=== PATIENT | male | born 1985 ===

== ENCOUNTER 2021-10-23 13:57 | Inpatient (IN) | payer MEDICARE, MEDICAID ==
[2021-10-23] MEDS ORDERED: MAGNESIUM HYDROXIDE 2,400 MG/10 ML CUP PO PRN (15:58)
[2021-10-23] MEDS ORDERED: HALOPERIDOL LACTATE 5 MG/ML 1 ML VIAL IM PRN (15:58)
[2021-10-23] MEDS ORDERED: ACETAMINOPHEN TAB 325 MG TAB PO PRN (15:58)
[2021-10-23] MEDS ORDERED: MAG HYDROX/AL HYDROX/SIMETH 30 ML CUP PO PRN (15:58)
[2021-10-23] MEDS ORDERED: LORazepam 2 MG/ML INJ IM PRN (16:02)
[2021-10-23 22:50] VITALS: RESP 18
[2021-10-23] MEDS: haloperidoL 5 MG TAB PO PRN (23:23)
[2021-10-23] MEDS: LORazepam 1 MG TAB PO PRN (23:23)
[2021-10-24] MEDS ORDERED: risperiDONE 2 MG TAB PO SCH (09:00)
[2021-10-24] MEDS: LORazepam 1 MG TAB PO PRN ×2 (09:04→23:23)
[2021-10-24] MEDS: NICOTINE 14MG/24HR PATCH TRANSDERM SCH (09:08)
[2021-10-24 14:42] LABS: Chol/HDL Ratio 2.53 Ratio; LDL Cholesterol,Calculated 61.2 mg/dL (0.0-131.0); VLDL Calculation 12.64 mg/dL (5.00-40.00)
--- NOTE | 2021-10-24 14:46 | P.HP ---
Psychiatric H&P - . H&P Date: 10/24/21 History & Physical: Allergies Allergy/AdvReac Type Severity Reaction Status Date / Time No Known Allergies Allergy Verified 10/23/21 15:57 Vital Signs Temp 97.9 F 10/24/21 06:47 Pulse 107 H 10/24/21 06:47 Resp 18 10/24/21 06:47 BP 120/68 10/24/21 06:47 Pulse Ox 99 10/24/21 06:47 FiO2 Intake & Output 10/23/21 10/24/21 10/24/21 18:59 06:59 18:59 Weight 72 kg Laboratory Last Values Estimated Ave Glu mg/dL 122 10/24/21 06:32 Hemoglobin A1c 5.9 % (0.0-6.0) 10/24/21 06:32 Triglycerides 63.20 mg/dL (0.00-149.00) 10/24/21 06:32 Cholesterol 122.00 mg/dL (0.00-200.00) 10/24/21 06:32 LDL Cholesterol, Calc 61.2 mg/dL (0.0-131.0) 10/24/21 06:32 VLDL Cholesterol, Calc 12.64 mg/dL (5.00-40.00) 10/24/21 06:32 HDL Cholesterol 48.20 mg/dL (40.00-60.00) 10/24/21 06:32 Cholesterol/HDL Ratio 2.53 Ratio 10/24/21 06:32 TSH 2.320 mIU/L (0.465-4.680) 10/24/21 06:32 10/24/21 14:46 IDENTIFYING DATA: Patient is a single, unemployed, 36-year-old -Belarusian male who presents to this hospital under petition and certification for mental health treatment from [facility]. HPI: Patient presented to the hospital on 10/23/2021, brought into the hospital from [facility] for mental health treatment. As per petition, the patient presented to the emergency department for increased auditory hallucination and unstable moods. He also appeared to be responding to internal stimuli and exhibiting bizarre behaviors. The patient was subsequently certified by Dr Oren lucia on 10/22/2021 stating "patient resents to the ED petition by family for increased auditory hallucinations and unstable moods. Patient appears to be responding to internal stimuli and has been without psychiatric medications. Patient requires further inpatient psychiatric admission for further stabilization." Upon evaluation the psychiatric unit, the patient does appear to respond to some internal stimuli and would be very tangential in conversation. He appears to be disorganized and at times. The patient however states that he has been previously prescribed Risperdal. He states that the Risperdal has been most beneficial for him and he is willing to take that medication. Although the patient does have a significant history of auditory and visual hallucinations, he is overtly denying any hallucinations at this time. He does display significant paranoia however is not reporting any overt delusions. The patient states that he has been homeless but has family all over the [place] area. Although he denies any overt psychotic symptoms staff have noted some bizarre behaviors. It was reported he was growling at the wall. Patient denies this when confronted. PAST PSYCHIATRIC HISTORY: Patient states that he has been diagnosed with schizophrenia. The patient recalls being prescribed Risperdal which has been beneficial for him. He states that lithium was not good for him. He is unable to recall any other medications. Reportedly, the patient has had numerous hospitalizations including stay at [facility]. The patient has been nonadherent with any outpatient psychiatric treatment. Patient denies any previous suicide attempts. PMH: Patient denies ALLERGIES: NO KNOWN DRUG ALLERGIES CHEMICAL DEPENDENCY HISTORY: The patient reports that he drinks heavily. He st ates that he drinks 6-8 beers on top of a fifth of liquor. He is unable to verbalize when his last beverage was. History is limited due to the patient's inability to maintain a linear conversation. FAMILY PSYCHIATRIC/SUBSTANCE USE HISTORY: Unable to assess SOCIAL HISTORY: Patient is homeless. He reports that he was never . He states that he has an 11th grade education. He previously worked for a [employer]. He is currently unemployed. MENTAL STATUS EXAM: General Appearance: Patient appears to be older than stated age is alert, directable, and attempts to cooperate. Patient appears to have poor hygiene and grooming. Behavior: Patient is seated but displays elevated psychomotor activity. Speech: Patient's speech is hyperverbal, nonlinear, tangential. Interruptible. Mood/Affect: Patient reports their mood is "I'm okay," affect is bizarre and slightly expansive. Suicidality/Homicidality: Patient denies any overt suicidal or homicidal ideations. Perceptions: Patient denies any visual hallucinations and denies any auditory hallucinations Though content/process: Patient appears to be disorganized and at times responding to internal stimuli. Memory and concentration: He is alert and oriented in all spheres. Concentration appears to be poor. Judgment and insight: Fair STRENGTHS/WEAKNESSES: Strength is that the patient appears to be in relatively good health. Weaknesses the patient has severe mental illness and history of nonadherence to treatment along with alcohol use disorder INTELLECT: average IMPRESSIONS: Schizophrenia Alcohol use disorder PLAN: -Patient is admitted under involuntary however wished to sign voluntarily into the MHU for stabilization of psychiatric symptoms and safety. Patient signed adult voluntary form and medication consent and is placed in patient's chart. -Medications : Patient wishes to restart Risperdal 2 mg by mouth twice a day for mood stabilization/psychosis -Ativan and Haldol PRN for agitation/aggression -Patient was counselled on substance abuse and desired to cut back on use -Patient was informed of the risks, benefits and side effects of the medication and patient verbally consented to taking the medications. Patient signed med consent form and was placed in chart. -Internal Medicine consult to perform medical evaluation and physical. -NRT - nicotine patch -SW on board for discharge planning. Encourage patient to participate in groups to work on coping skills.
[2021-10-24] MEDS: risperiDONE 2 MG TAB PO SCH (21:04)
[2021-10-24] MEDS: haloperidoL 5 MG TAB PO PRN (23:23)
--- NOTE | 2021-10-25 04:09 | P.PN ---
Progress Note - Text Progress Note Date: 10/25/21 Attempted to see the patient in the MHU. Patient asleep and refused to be seen or evaluated.
[2021-10-25 07:05] VITALS: BP 108/67; PULSE 72; TEMP 97.4
[2021-10-25] MEDS: risperiDONE 2 MG TAB PO SCH (09:02)
[2021-10-25] MEDS: NICOTINE 14MG/24HR PATCH TRANSDERM SCH (09:04)
--- NOTE | 2021-10-25 13:06 | P.DS ---
Providers Date of admission: 10/23/21 22:21 Expected date of discharge: 10/25/21 Attending physician: Alexandru Tong MD Consults: 10/23/21 15:58 Consult Physician Routine Consulting Provider: Arnold Carlos Consult Reason/Comments: medical management Do you want consulting provider notified?: Yes Primary care physician: Stated None - Discharge Diagnosis(es) (1) Schizophrenia Current Visit: Yes Status: Acute Priority: High (2) Alcohol use disorder Current Visit: Yes Status: Chronic Priority: Medium (3) Tobacco use disorder Current Visit: Yes Status: Chronic Priority: Medium Hospital Course: Admission HPI: Patient is a single, unemployed, 36-year-old -Haitian male who presents to this hospital under petition and certification for mental health treatment from [facility]. HPI: Patient presented to the hospital on 10/23/2021, brought into the hospital from [facility] for mental health treatment. As per petition, the patient presented to the emergency department for increased auditory hallucination and unstable moods. He also appeared to be responding to internal stimuli and exhibiting bizarre behaviors. The patient was subsequently certified by Dr Herring on 10/22/2021 stating "patient resents to the ED petition by family for increased auditory hallucinations and unstable moods. Patient appears to be responding to internal stimuli and has been without psychiatric medications. Patient requires further inpatient psychiatric admission for further stabilization." Upon evaluation the psychiatric unit, the patient does appear to respond to some internal stimuli and would be very tangential in conversation. He appears to be disorganized and at times. The patient however states that he has been previously prescribed Risperdal. He states that the Risperdal has been most beneficial for him and he is willing to take that medication. Although the patient does have a significant history of auditory and visual hallucinations, he is overtly denying any hallucinations at this time. He does display significant paranoia however is not reporting any overt delusions. The patient states that he has been homeless but has family all over the [place] area. Although he denies any overt psychotic symptoms staff have noted some bizarre behaviors. It was reported he was growling at the wall. Patient denies this when confronted. Patient states that he has been diagnosed with schizophrenia. The patient rec alls being prescribed Risperdal which has been beneficial for him. He states that lithium was not good for him. He is unable to recall any other medications. Reportedly, the patient has had numerous hospitalizations including stay at [facility]. The patient has been nonadherent with any outpatient psychiatric treatment. Patient denies any previous suicide attempts. Hospital course: Upon admission to the unit patient was initially presenting as expansive, bizarre, and impulsive. Patient was however directable and agreeable to commence treatment. Patient got along well with other patients on the unit and followed unit protocol. Patient was compliant with the medications and denied any side effects throughout hospital course. Patient was started on Risperdal for management of mood stabilization and psychosis. Patient spoke of his stressors and engaged in therapy both group and individual. Patient was also seen by medical team for history and physical exam. When restarted on his medications, the patient became much more linear and logical conversation. He also displayed a higher level thinking and the ability to be resourceful and plan ahead. The patient was given the opportunity sign himself voluntarily on the psychiatric unit instead of continuing with petition and certification process. The patient attended groups to the high-level participation and was calm, cooperative, and friendly with staff and peers. On the day of discharge, the patient is not reporting any suicidal or homicidal ideation, intention, and/or plan. He is not reporting any auditory or visual hallucinations. He denies any paranoia or other delusions. He expresses future orientation with the desire to live in the [facility] and to eventually settle down. 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 The patient has been adherent with his medications and is not reporting any significant side effects at this time. The patient does report significant history substance abuse however is pre-contemplative in quitting and does not wish to go to rehab. The patient was counseled at length on abstaining from all substances including alcohol and marijuana. The patient was urged to be adherent with his medications and to follow-up with outpatient appointments. Prior to discharge, family meeting was arranged by the child protective services social worker to ensure safety. The patient's mother expressed no concerns. Mental status exam: General Appearance: Patient appears to be stated age is alert, pleasant, and cooperative. Patient is in no acute distress and has fair hygiene and grooming Behavior: Patient is calmly seated without any agitated behavior. Speech: Patient's speech is fluent and nonpressured. Mood/Affect: Patient reports their mood is "going good", affect is congruent and euthymic to bright. Suicidality/Homicidality: Patient denies having any suicidal or homicidal ideation intent or plan. Perceptions: Patient denies any auditory or visual hallucinations. Though content/process: There is no evidence of any delusional thought content and thought process is linear and goal-directed. The patient is future oriented. Memory and concentration: AOX3, grossly intact for the purposes of this session. Can spell "WORLD" backwards correctly. Judgment and insight: Improved with guarded prognosis Vital Signs Temp 97.4 F L 10/25/21 07:04 Pulse 72 10/25/21 07:04 Resp 18 10/24/21 06:47 BP 108/67 10/25/21 07:04 Pulse Ox 100 10/25/21 07:04 FiO2 Laboratory Results Estimated Ave Glu mg/dL 122 10/24/21 06:32 Hemoglobin A1c 5.9 % (0.0-6.0) 10/24/21 06:32 Triglycerides 63.20 mg/dL (0.00-149.00) 10/24/21 06:32 Cholesterol 122.00 mg/dL (0.00-200.00) 10/24/21 06:32 LDL Cholesterol, Calc 61.2 mg/dL (0.0-131.0) 10/24/21 06:32 VLDL Cholesterol, Calc 12.64 mg/dL (5.00-40.00) 10/24/21 06:32 HDL Cholesterol 48.20 mg/dL (40.00-60.00) 10/24/21 06:32 Cholesterol/HDL Ratio 2.53 Ratio 10/24/21 06:32 TSH 2.320 mIU/L (0.465-4.680) 10/24/21 06:32 Allergies Allergy/AdvReac Type Severity Reaction Status Date / Time No Known Allergies Allergy Verified 10/23/21 15:57 Impression: Schizophrenia Alcohol use disorder Tobacco use disorder Plan: -Continue with discharge today as patient has improved and stabilized psychiatrically and is not currently an imminent threat to himself and/or others. Patient will remain at chronically elevated risk for harm to self and/or others due to his homelessness and alcohol abuse. -Continue medications: Risperdal 2 mg by mouth twice a day for mood stabilization/psychosis -Patient was counseled on the need for medication compliance and appropriate follow-up at mental health and also primary care for medical issues. Patient verbalized understanding and agreed. -Social work to arrange for and conduct family meeting to ensure safety upon discharge and answer any questions/concerns. Social work also to arrange for patients follow up appointments with [facility] for psychiatric care along with follow up with primary care provider. -Patient counseled on abstaining from recreational drugs and marijuana and alcohol. Was informed/educated on the adverse effects on their physical and mental health. Patient verbally agreed and understood. -Patient was instructed to return to the hospital or seek immediate medical care if their psychiatric or medical symptoms do worsen or reoccur. -Psychoeducation and supportive therapy provided to patient. Risks and benefits of pharmacological treatment versus the risks and benefits of nontreatment weight and discussed. Informed consent discussion held. Common side effects of psychotropics discussed such as, but not limited to headache, GI disturbance, sexual dysfunction, movement disorders, sedation, and orthostatic hypotension. Life threatening and blackbox warnings of prescribed medications also discussed. Potential risks of operating a vehicle or heavy machinery discussed with patient at length. Advised on importance of compliance and a reliable and responsible manner. Patient advised to review FDA consumer labeling of all medications prior to taking. Patient verbalized understanding of potential risks, and agrees with current treatment plan. Patient advised to medically contact physician/emergency personnel if any acute changes in condition occur. Plan - Discharge Summary New Discharge Prescriptions: New risperiDONE [RisperDAL] 2 mg PO BID 30 Days tab Discharge Medication List risperiDONE [RisperDAL] 2 mg PO BID 30 Days tab 10/25/21 [Rx] Follow up Appointment(s)/Referral(s): [facility] [Other] - 10/27/21 4:00 pm (10/27 @ 4:00 via Telehealth with [facility]) [facility] [NON-STAFF] - 1 Week Patient Instructions/Handouts: How to Stop Smoking (DC), Depression (DC) Activity/Diet/Wound Care/Special Instructions: Activity and diet as tolerated. Avoid the use of street drugs and alcohol. Take all medications as prescribed. When you are in need of refills on your medications please contact your medical provider and/or outpatient psychiatrist to have this done. Please go to scheduled outpatient appointment for aftercare treatment. If symptoms return or become worse, call the crisis line at and/or go to the nearest emergency room for evaluation Discharge Disposition: HOME SELF-CARE
== END 2021-10-25 14:02 | disposition home or self-care (01) | DRG 885 ==
LOC: 3MHU 22:21
PROVIDERS: ADMIT Psychiatry & Neurology Psychiatry; ATTEND Psychiatry & Neurology Psychiatry
DX: F20.9 Schizophrenia, unspecified (principal); Z56.0 Unemployment, unspecified; Z59.00 Homelessness unspecified; Z72.0 Tobacco use; Z79.899 Other long term (current) drug therapy
CPT/HCPCS: 80061; 83036; 84443

== ENCOUNTER 2021-10-25 22:45 | Emergency (ER) | payer MEDICARE, OTHER ==
[2021-10-25 22:49] VITALS: RESP 18; TEMP 98.3
[2021-10-26] MEDS ORDERED: IBUPROFEN 600 MG TAB PO STA (02:22)
--- NOTE | 2021-10-26 02:50 | ED ---
General Adult HPI - General Chief complaint: Extremity Injury, Upper Stated complaint: rt hand injury Time Seen by Provider: 10/26/21 02:16 Source: patient, RN notes reviewed Mode of arrival: ambulatory Limitations: no limitations - History of Present Illness Initial comments: 36-year-old male presents to the emergency department for evaluation of right hand pain and injury, onset 1 week prior to arrival. Patient states he punched a wall last week and waited for the swelling to go down. States he thinks his "hand is broke." Complains of discomfort at the base of the 5th digit with a small area of swelling. Did not take anything for pain prior to arrival. Denies any other injuries or concerns at this time. - Related Data Previous Rx's Medication Instructions Recorded risperiDONE [RisperDAL] 2 mg PO BID 30 Days tab 10/25/21 Allergies Allergy/AdvReac Type Severity Reaction Status Date / Time No Known Allergies Allergy Verified 10/25/21 22:49 Review of Systems ROS Statement: Those systems with pertinent positive or pertinent negative responses have been documented in the HPI. ROS Other: All systems not noted in ROS Statement are negative. Past Medical History Past Medical History: No Reported History History of Any Multi-Drug Resistant Organisms: None Reported Past Surgical History: No Surgical Hx Reported Past Psychological History: No Psychological Hx Reported Smoking Status: Current every day smoker Past Alcohol Use History: Daily Past Drug Use History: Marijuana General Exam Limitations: no limitations (Well-developed, well-nourished male in no acute distress. Initial temperature 98.3, pulse 87, respirations 18, blood pressure 109/72, pulse ox 96% on room air.) General appearance: alert, in no apparent distress Respiratory exam: Present: normal lung sounds bilaterally. Absent: respiratory distress, wheezes, rales, rhonchi, stridor Cardiovascular Exam: Present: regular rate, normal rhythm, normal heart sounds. Absent: systolic murmur, diastolic murmur, rubs, gallop, clicks GI/Abdominal exam: Present: soft, normal bowel sounds. Absent: distended, tenderness, guarding, rebound, rigid Right Elbow exam: Present: normal inspection, full ROM. Absent: tenderness, swelling Forearm Wrist exam: Present: normal inspection, full ROM. Absent: tenderness, swelling Hand Wrist exam: Present: full ROM, tenderness (Tenderness upon palpation of the fifth metacarpal and fifth digit, dorsal surface right hand), swelling (Mild Swelling at the fifth MCP joint) Neuro motor exam: Present: thumb opposition intact, fingers 2-5 abduction intact, other (Handgrip strong and equal bilaterally) Vascular: Present: normal capillary refill, radial pulse, ulnar pulse. Absent: vascular compromise, Pallo Neurological exam: Present: alert, oriented X3, CN II-XII intact, normal gait Psychiatric exam: Present: normal affect, normal mood Skin exam: Present: warm, dry, intact, normal color Course Vital Signs 10/25/21 10/26/21 22:46 03:29 Temperature 98.3 F Pulse Rate 87 57 L Respiratory 18 18 Rate Blood Pressure 109/72 178/81 O2 Sat by Pulse 96 Oximetry Medical Decision Making - Medical Decision Making 36-year-old male in no significant past medical history presents to emergency department for evaluation of right hand pain after punching a wall a week ago. Upon exam, the is mild swelling surrounding the fifth MCP joint and minimal tenderness along the fifth metacarpal on the dorsal surface of the right hand. Patient was given Motrin for discomfort. X-ray of was obtained and is unremarkable. Boubacar wrap was applied and patient is instructed to take Tylenol or Motrin if needed for pain. Encouraged to follow up with his PCP for a recheck. Return parameters discussed in detail. Patient verbalizes understanding and agrees with this plan. Attending: Phani. - Radiology Data Radiology results: report reviewed, image reviewed X-ray of the right hand was obtained. Report was reviewed in its entirety. Impression per Dr. 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 Distal fracture. No evidence of fracture on the little finger. Disposition Clinical Impression: Right hand pain Disposition: HOME SELF-CARE Condition: Stable Instructions (If sedation given, give patient instructions): Hand Sprain (ED) Additional Instructions: May take Tylenol or Motrin as needed for pain or discomfort. Boubacar wrap for compression. Keep extremity elevated while at rest. Follow-up with your PCP for recheck in 48 hours if needed. Return to the emergency department with any new, worsening, or concerning symptoms. Is patient prescribed a controlled substance at d/c from ED?: No Referrals: None,Stated [Primary Care Provider] - 1-2 days Time of Disposition: 03:42
--- NOTE | 2021-10-26 03:16 | XR ---
EXAMINATION TYPE: XR hand complete RT DATE OF EXAM: 10/26/2021 COMPARISON: NONE HISTORY: Fifth digit pain TECHNIQUE: 3 views FINDINGS: There is minor spurring at the IP joints. Metacarpals are intact. I see no fracture nor dis location. Carpal bones are intact. There are no erosions. 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 No fracture. No evidence of fracture of the little finger.
[2021-10-26 03:30] VITALS: BP 178/81; PULSE 57
== END 2021-10-26 04:00 | disposition home or self-care (01) ==
LOC: EC 22:45
DX: M79.641 Pain in right hand (principal); F17.200 Nicotine dependence, unspecified, uncomplicated
CPT/HCPCS: 99283

== ENCOUNTER 2021-10-26 23:12 | Emergency (ER) | payer MEDICARE, OTHER ==
[2021-10-26 23:50] VITALS: BP 108/66; PULSE 88; RESP 16; TEMP 97.5
[2021-10-27] MEDS ORDERED: KETOROLAC 15 MG/ML 1 ML VIAL IM STA (01:30)
--- NOTE | 2021-10-27 01:32 | ED ---
General Adult HPI - General Chief complaint: Extremity Injury, Upper Stated complaint: hand injury revisit Time Seen by Provider: 10/27/21 01:05 Source: patient Mode of arrival: ambulatory Limitations: no limitations - History of Present Illness Initial comments: Patient is a 36-year-old male presenting with chief complaint of right fifth finger pain. Patient states that a week ago he punched a wall, he was evaluated in this ER last night for hand pain. X-rays on no fracture. Patient states he is having continued pain. He is not using any Motrin or Tylenol at home for pain control. He denies any numbness, tingling, weakness, loss of range of motion. - Related Data Previous Rx's Medication Instructions Recorded risperiDONE [RisperDAL] 2 mg PO BID 30 Days tab 10/25/21 Allergies Allergy/AdvReac Type Severity Reaction Status Date / Time No Known Allergies Allergy Verified 10/26/21 23:50 Review of Systems ROS Statement: Those systems with pertinent positive or pertinent negative responses have been documented in the HPI. ROS Other: All systems not noted in ROS Statement are negative. Past Medical History Past Medical History: No Reported History History of Any Multi-Drug Resistant Organisms: None Reported Past Surgical History: No Surgical Hx Reported Past Psychological History: No Psychological Hx Reported Smoking Status: Current every day smoker Past Alcohol Use History: Daily Past Drug Use History: Marijuana General Exam Limitations: no limitations General appearance: alert, in no apparent distress Head exam: Present: atraumatic, normocephalic, normal inspection Eye exam: Present: normal appearance, EOMI. Absent: scleral icterus Neck exam: Present: normal inspection Extremities exam: Present: normal inspection, full ROM, normal capillary refill. Absent: tenderness, joint swelling Neurological exam: Present: alert, CN II-XII intact Psychiatric exam: Present: normal affect, normal mood Skin exam: Present: warm, dry, intact, normal color. Absent: rash Course Vital Signs 10/26/21 23:48 Temperature 97.5 F L Pulse Rate 88 Respiratory 16 Rate Blood Pressure 108/66 O2 Sat by Pulse 96 Oximetry Medical Decision Making - Medical Decision Making Patient is a 36-year-old male presenting with chief complaint of right 5th finger pain. This is from an injury a week ago where he punched a wall. He received x-rays and this ER last night confirming there is no fracture. Patient has not taken any supportive treatment at home. On examination there is no swelling, he has full range of motion with no tenderness. Neurovascularly intact. Denies any numbness or tingling. Patient is provided with a finger splint for support upon his request. Patient is given Toradol for pain control. Follow-up with PCP in one week. Report back to ER with any new or worsening symptoms. I discussed return parameters alarm symptoms. Answered all questions. Patient conveyed verbal understanding and agreed to the plan. My attending is Dr. Kelly. Disposition Clinical Impression: Finger pain Disposition: HOME SELF-CARE Condition: Good Instructions (If sedation given, give patient instructions): Finger Sprain (ED) Additional Instructions: Follow-up with PCP this week. Report back to ER with any new or worsening symptoms. Take Motrin and Tylenol as needed for pain control. Ice the finger for pain control. Is patient prescribed a controlled substance at d/c from ED?: No Referrals: None,Stated [Primary Care Provider] - 1-2 days Time of Disposition: 01:32
== END 2021-10-27 02:07 | disposition home or self-care (01) ==
LOC: EC 23:12
DX: M79.644 Pain in right finger(s) (principal); F17.200 Nicotine dependence, unspecified, uncomplicated; F12.90 Cannabis use, unspecified, uncomplicated; W22.01XA Walked into wall, initial encounter
CPT/HCPCS: 96372; 99283

== ENCOUNTER 2021-10-28 23:37 | Emergency (ER) | payer MEDICARE, OTHER ==
[2021-10-28 23:45] VITALS: BP 141/67; RESP 18; TEMP 98
[2021-10-29 00:39] VITALS: PULSE 112
--- NOTE | 2021-10-29 01:13 | ED ---
URI HPI - General Chief Complaint: Upper Respiratory Infection Stated Complaint: feeling sick Time Seen by Provider: 10/29/21 00:42 Source: patient, RN notes reviewed Mode of arrival: ambulatory Limitations: no limitations - History of Present Illness Initial Comments: Patient comes to the emergency back complaining of a productive cough for the past few days. Denies any fever. Denies any pain. No sore throat. No earache. No significant nasal discharge. No headache, no fever or chills, no changes in vision or hearing, no sore throat or difficulty with speech, no neck pain, no chest pain or shortness of breath, no abdominal pain, no nausea or vomiting, no changes in urination or bowel movements, no numbness or tingling, no extremity pain, no skin rashes or lesions. MD Complaint: cough - Related Data Previous Rx's Medication Instructions Recorded risperiDONE [RisperDAL] 2 mg PO BID 30 Days tab 10/25/21 Benzonatate [Tessalon Perles] 200 mg PO TID PRN #30 capsule 10/29/21 guaiFENesin [Mucinex] 1,200 mg PO BID #30 tab 10/29/21 Allergies Allergy/AdvReac Type Severity Reaction Status Date / Time No Known Allergies Allergy Verified 10/28/21 23:45 Review of Systems ROS Statement: Those systems with pertinent positive or pertinent negative responses have been documented in the HPI. ROS Other: All systems not noted in ROS Statement are negative. Past Medical History Past Medical History: No Reported History History of Any Multi-Drug Resistant Organisms: None Reported Past Surgical History: No Surgical Hx Reported Past Psychological History: No Psychological Hx Reported Smoking Status: Current every day smoker Past Alcohol Use History: Daily Past Drug Use History: Marijuana General Exam - General Exam Comments Initial Comments: Patient does not appear to be ill or toxic. Vital signs stable, patient afebrile. Limitations: no limitations General appearance: alert, in no apparent distress Head exam: Present: atraumatic, normocephalic, normal inspection Eye exam: Present: normal appearance, PERRL, EOMI. Absent: scleral icterus, conjunctival injection, periorbital swelling ENT exam: Present: normal exam, normal oropharynx, mucous membranes moist, TM's normal bilaterally. Absent: mucous membranes dry, normal external ear exam Neck exam: Present: normal inspection, full ROM. Absent: tenderness, meningismus, lymphadenopathy Respiratory exam: Present: normal lung sounds bilaterally. Absent: respiratory distress, wheezes, rales, rhonchi, stridor, chest wall tenderness, accessory mus lisset use, decreased breath sounds, prolonged expiratory Cardiovascular Exam: Present: regular rate, normal rhythm, normal heart sounds. Absent: systolic murmur, diastolic murmur, rubs, gallop, clicks GI/Abdominal exam: Present: soft, normal bowel sounds. Absent: distended, tenderness, guarding, rebound, rigid Extremities exam: Present: normal inspection, full ROM, normal capillary refill. Absent: tenderness, pedal edema, joint swelling, calf tenderness Back exam: Present: normal inspection Neurological exam: Present: alert, oriented X3, CN II-XII intact Psychiatric exam: Present: normal affect, normal mood Skin exam: Present: warm, dry, intact, normal color. Absent: rash Course Vital Signs 10/28/21 10/29/21 23:43 00:39 Temperature 98 F Pulse Rate 59 L 112 H Respiratory 18 18 Rate Blood Pressure 141/67 O2 Sat by Pulse 100 Oximetry Procedures - Smoking Cessation Time Spent Discussing Smoking Cessation w/Patient (Minutes): 5 Patient Acknowledges Need for Cessation: No Medical Decision Making - Medical Decision Making Patient symptomology most consistent with viral bronchitis. Patient is a cigarette smoker. I did financial health counselor him on cessation. - Lab Data Lab Results 10/29/21 10/29/21 Range/Units 01:01 01:01 Coronavirus (PCR) Not Detected (Not Detectd) Influenza Type A RNA Not Detected (Not Detectd) Influenza Type B (PCR) Not Detected (Not Detectd) - Radiology Data Radiology results: pending, image reviewed (No evidence of acute pathology as read by me. No pneumothorax. No infiltrate. No osseous lesion. No cardiomegaly. No effusion.) Disposition Clinical Impression: Acute viral bronchitis, Cigarette smoker Disposition: HOME SELF-CARE Condition: Good Instructions (If sedation given, give patient instructions): How to Stop Smoking (ED), Acute Bronchitis (ED) Additional Instructions: Follow-up with your regular physician as directed. Return to the ER immediately if any symptoms worsen, new symptoms arise, or any other problems develop. Prescriptions: guaiFENesin [Mucinex] 1,200 mg PO BID #30 tab Benzonatate [Tessalon Perles] 200 mg PO TID PRN #30 capsule PRN Reason: Cough Is patient prescribed a controlled substance at d/c from ED?: No Referrals: Nathan Cleaning [STAFF PHYSICIAN] - 11/03/21 Time of Disposition: 01:59
[2021-10-29] MEDS ORDERED: BENZONATATE 100 MG CAP PO STA (01:57)
--- NOTE | 2021-10-29 03:44 | XR ---
EXAM: XR Chest, 2 Views CLINICAL HISTORY: ITS.REASON XR Reason: Cough TECHNIQUE: Frontal and lateral views of the chest. COMPARISON: No relevant prior studies available. FINDINGS: Lungs: No consolidation or mass. Pleural space: No effusion. Heart: No cardiomegaly. Bones/joints: No acute findings. IMPRESSION: No acute cardiopulmonary process.
== END 2021-10-29 02:17 | disposition home or self-care (01) ==
LOC: EC 23:37
DX: J20.9 Acute bronchitis, unspecified (principal); F17.210 Nicotine dependence, cigarettes, uncomplicated; Z20.822 Contact with and (suspected) exposure to COVID-19
CPT/HCPCS: 71046; 87502; 87635; 99283

== ENCOUNTER 2021-11-15 23:22 | Emergency (ER) | payer MEDICARE, OTHER ==
[2021-11-16 01:46] VITALS: BP 123/87; PULSE 63; RESP 19; TEMP 98.6
[2021-11-16] MEDS ORDERED: IBUPROFEN 600 MG STARTER PACK 4 TAB BTL PO STA (02:53)
[2021-11-16] MEDS ORDERED: IBUPROFEN 600 MG TAB PO STA (02:53)
[2021-11-16] MEDS ORDERED: dexAMETHasone 2 MG TAB PO STA (02:53)
--- NOTE | 2021-11-16 02:54 | ED ---
Extremity Problem HPI - General Chief complaint: Extremity Problem,Nontraumatic Stated complaint: Bilat hand swelling Time Seen by Provider: 11/16/21 02:10 Source: patient, RN notes reviewed, old records reviewed Mode of arrival: ambulatory Limitations: no limitations - History of Present Illness Initial comments: This is a 36-year-old male DF for evaluation of hand pain and swelling. No significant rash noted here exam. No trauma. He states he does have history of hand swelling. Patient does occasionally get rashes and skin peeling. No other complaints no medical history takes no medications. MD Complaint: extremity pain, extremity swelling -: days(s) Location: left, right, upper extremity (Hands) History of Same: Yes Radiation: none Severity scale (1-10): 4 Quality: aching Consistency: intermittent Improves with: nothing Worsens with: nothing Associated Symptoms: denies other symptoms - Related Data Previous Rx's Medication Instructions Recorded risperiDONE [RisperDAL] 2 mg PO BID 30 Days tab 10/25/21 Benzonatate [Tessalon Perles] 200 mg PO TID PRN #30 capsule 10/29/21 guaiFENesin [Mucinex] 1,200 mg PO BID #30 tab 10/29/21 Allergies Allergy/AdvReac Type Severity Reaction Status Date / Time No Known Allergies Allergy Verified 11/16/21 01:46 Review of Systems ROS Statement: Those systems with pertinent positive or pertinent negative responses have been documented in the HPI. ROS Other: All systems not noted in ROS Statement are negative. Past Medical History Past Medical History: No Reported History History of Any Multi-Drug Resistant Organisms: None Reported Past Surgical History: No Surgical Hx Reported Past Psychological History: No Psychological Hx Reported Smoking Status: Current every day smoker Past Alcohol Use History: Daily Past Drug Use History: Marijuana General Exam - General Exam Comments Initial Comments: Patient likely has eczema bilateral hands General appearance: alert, in no apparent distress Head exam: Present: atraumatic, normocephalic, normal inspection Eye exam: Present: normal appearance, PERRL, EOMI. Absent: scleral icterus, conjunctival injection, periorbital swelling ENT exam: Present: normal exam, mucous membranes moist Neck exam: Present: normal inspection. Absent: tenderness, meningismus, lymphadenopathy Respiratory exam: Present: normal lung sounds bilaterally. Absent: respiratory distress, wheezes, rales, rhonchi, stridor Cardiovascular Exam: Present: regular rate, normal rhythm, normal heart sounds. Absent: systolic murmur, diastolic murmur, rubs, gallop, clicks GI/Abdominal exam: Present: soft, normal bowel sounds. Absent: distended, tenderness, guarding, rebound, rigid Extremities exam: Present: normal inspection, full ROM, normal capillary refill. Absent: tenderness, pedal edema, joint swelling, calf tenderness Back exam: Present: normal inspection Neurological exam: Present: alert, oriented X3, CN II-XII intact Psychiatric exam: Present: normal affect, normal mood Skin exam: Present: warm, dry, intact, normal color. Absent: rash Course Vital Signs 11/16/21 01:43 Temperature 98.6 F Pulse Rate 63 Respiratory 19 Rate Blood Pressure 123/87 O2 Sat by Pulse 100 Oximetry - Reevaluation(s) Reevaluation #1: 11/16/21 03:18 Medical records reviewed Reevaluation #2: 11/16/21 03:18 Patient has no real change of symptoms here in the ER Reevaluation #3: 11/16/21 03:18 Patient informed of results and questions are answered Medical Decision Making - Medical Decision Making 36 male presents today for swollen hands. Patient likely does have underlying eczema. Some inflammation for both hands. Patient encouraged motion hands taking anti-inflammatories and can be discharged home Disposition Clinical Impression: Eczema of both hands, Hand edema Disposition: HOME SELF-CARE Condition: Good Instructions (If sedation given, give patient instructions): Edema (ED) Is patient prescribed a controlled substance at d/c from ED?: No Referrals: None,Stated [Primary Care Provider] - 1-2 days Time of Disposition: 03:00
== END 2021-11-16 04:00 | disposition home or self-care (01) ==
LOC: EC 23:22
DX: L30.9 Dermatitis, unspecified (principal); R60.9 Edema, unspecified; F17.200 Nicotine dependence, unspecified, uncomplicated
CPT/HCPCS: 99283

== ENCOUNTER 2021-11-25 18:21 | Inpatient (IN) | payer MEDICARE, MEDICAID ==
[2021-11-25] MEDS ORDERED: MAG HYDROX/AL HYDROX/SIMETH 30 ML CUP PO PRN (18:29)
[2021-11-25] MEDS ORDERED: HALOPERIDOL LACTATE 5 MG/ML 1 ML VIAL IM PRN (18:29)
[2021-11-25] MEDS ORDERED: MAGNESIUM HYDROXIDE 2,400 MG/10 ML CUP PO PRN (18:29)
[2021-11-25] MEDS ORDERED: LORazepam 1 MG TAB PO PRN (18:29)
[2021-11-25] MEDS ORDERED: LORazepam 1 MG/0.5 ML VIAL IM PRN (18:32)
[2021-11-25] MEDS ORDERED: haloperidoL 5 MG TAB PO PRN (18:33)
[2021-11-26] MEDS: CLINDAMYCIN 150 MG CAP PO SCH ×4 (02:06→21:06)
[2021-11-26] MEDS: NICOTINE 14MG/24HR PATCH TRANSDERM SCH (08:38)
[2021-11-26] MEDS ORDERED: risperiDONE 2 MG TAB PO SCH (09:00)
--- NOTE | 2021-11-26 11:55 | P.HPMEDMHU ---
History of Present Illness H&P Date: 11/26/21 History of Presenting Illness: Patient is a 36-year-old male with no known reported past medical history. He is currently admitted to inpatient mental health unit under psychiatric team and we have been consulted for medical management throughout his hospitalization. Patient seen and fully evaluated at mental health unit. Patient ambulatory with a steady gait and cooperative throughout assessment. Patient is alert and oriented to person, place, time, and situation. He reports having auditory hallucinations. Patient reports hearing voices and states these voices are "rude and constantly interrupt" him. Patient reports he is unable to sleep, eat, or functions secondary to constantly hearing these voices. Patient denies having any visual or tactile hallucinations and denies having any suicidal or homicidal ideations. Patient does report to smoking 2 to 2-1/2 packs of cigarettes daily, daily alcohol use drinking 3-5 beers along with 1 pint of hard liquor each and every day, and daily marijuana use. Patient denies any other drug use including prescription pills, cocaine, meth, or heroin. Patient denies having any reported medical history and currently denies having any headache, lightheadedness, dizziness, chest pain, palpitations, shortness of breath, or experiencing any numbness/tingling/weakness in his extremities. Patient reports pain and swelling to left hand. He reports this began Sunday night but has shown significant improvement since initial presentation. Upon review of chart patient underwent two-view x-ray to [facility] showing subacute/chronic appearing fracture of the third metacarpal with mild diffuse soft tissue swelling. Review of systems: Pertinent positives and negatives as discussed in HPI, a complete review of systems was performed and all other systems are negative. Physical exam: Vital signs reviewed and stable. General: Nontoxic, no distress and appears stated age. Derm: Skin warm and dry, normal coloration for ethnicity. Head: Atraumatic, normocephalic and symmetric. Eyes: EOMs intact, no lid lag, and anicteric sclera Mouth: no lip lesions, mucus membranes moist Cardiovascular: regular rate and rhythm with normal S1S2, no murmur, positive posterior tibial pulses bilaterally, and cap refill < 2 seconds. Lungs: Respirations even, regular, and unlabored on room air. Lungs CTA bilaterally, no rhonchi, no rales, no wheezing, and no accessory muscle usage. Abdominal: soft, nontender to palpation, no guarding, no appreciable organomegaly Ext: ROM intact. No gross muscle atrophy, no edema, no contractures Neuro: Speech clear, face symmetrical and CN II-XII grossly intact with no noted focal neuro deficits Psych: Alert and oriented to person, place, time, and situation. Appropriate and pleasant affect. Assessment and Plan of Care: Left hand pain and swelling Chronic fracture of the third metacarpal -patient underwent two-view x-ray to [facility] showing subacute/chronic appearing fracture of the third metacarpal with mild diffuse soft tissue swelling. -Recommend ice as needed, would recommend compression with Boubacar wrap however patient unable to have Boubacar wrap/dressing on mental health unit. -When necessary pain medication with Motrin and/or Tylenol. -Recommend outpatient follow-up with orthopnea specialist, Dr. Jauregui upon discharge from inpatient mental health unit. Auditory hallucinations -Management per primary admitting psychiatric team. -Provide safe and supportive care. Alcohol abuse -Patient reports last alcoholic drink Sunday prior to arrival at [facility]. -Recommend alcohol cessation and outpatient resources to be provided upon discharge including inpatient drug and alcohol rehabilitation programs, AA support groups, and counseling. Nicotine dependence -Recommend smoking cessation. -Nicotine patch Cannabinoid abuse disorder -Recommend cessation. Thank you for allowing us to participate in the care of this pleasant patient. Do not hesitate to contact us with questions. Someone can be reached from the [facility] hospitalist group all hours of the day at [phone] or via [employer]. Past Medical History Past Medical History: No Reported History History of Any Multi-Drug Resistant Organisms: None Reported Past Surgical History: No Surgical Hx Reported Past Psychological History: No Psychological Hx Reported Smoking Status: Current every day smoker Past Alcohol Use History: Daily Past Drug Use History: Marijuana Medications and Allergies Home Medications Medication Instructions Recorded Confirmed Type risperiDONE [RisperDAL] 2 mg PO BID 30 Days tab 10/25/21 Rx Benzonatate [Tessalon Perles] 200 mg PO TID PRN #30 capsule 10/29/21 Rx guaiFENesin [Mucinex] 1,200 mg PO BID #30 tab 10/29/21 Rx Allergies Allergy/AdvReac Type Severity Reaction Status Date / Time No Known Allergies Allergy Verified 11/26/21 03:00 Physical Exam Vitals: Vital Signs Temp Pulse Resp BP Pulse Ox 07/16/22 03:06 97.5 F L 79 16 112/59 98 Intake and Output 11/25/21 11/26/21 11/26/21 22:59 06:59 14:59 Other: Weight 75 kg 63.6 kg Cranial Nerve Examination - Cranial Nerves Cranial Nerve II- Optic: Intact Cranial Nerve III- Oculomotor: Intact Cranial Nerve IV- Trochlear: Intact Cranial Nerve V- Trigeminal: Intact Cranial Nerve - Abducens: Intact Cranial Nerve VII- Facial: Intact Cranial Nerve VIII- Auditory: Intact Cranial Nerve IX- Glossopharyngeal: Intact Cranial Nerve X- Vagus: Intact Cranial Nerve XI- Accessory: Intact Cranial Nerve XII- Hypoglossal: Intact Thrombosis Risk Factor Assmnt - Choose All That Apply Any of the Below Risk Factors Present?: No Other Risk Factors: No Other congenital or acquired thrombophilia - If yes, enter type in comment: No Thrombosis Risk Factor Assessment Level: Very Low Risk
--- NOTE | 2021-11-26 20:27 | P.HP ---
Psychiatric H&P - . H&P Date: 11/26/21 History & Physical: IDENTIFYING DATA: Patient is a 36 year old male with schizophrenia who presents with auditory hallucinations. HPI: Patient presented to the hospital as a transfer from [facility] due to psychosis. This is patient's second psychiatric hospitalization to [facility] in the past 1-2 months; last hospitalization for psychosis was from 10/23/21 to 10/25/21. Per mental health petition and cert, he was having "auditory hallucinations, commanding him to do things. Pt has poor insight and judgment." On assessment, patient is alert and oriented to person, place, time and situation. His thought process is disorganized with loose associations. He appears to be attending to internal stimuli. He endorses auditory hallucinations of voices that he sometimes can't make out what they're saying. Patient denies any suicidal or homicidal ideations, intent or plan. At this time, he denies visual hallucinations. Patient denies any flight of ideas, racing thoughts, and increased in goal directed behavior. He is paranoid and believes the police are out to get him. Patient admits to using marijuana whenever he can get it. Smokes tobacco - about 2.5 ppd. He drinks about 2 beers in one day currently, but has a history of heavy alcohol use. His last drink of alcohol was Sunday morning. PAST PSYCHIATRIC HISTORY: Patient states that he is diagnosed with schizophrenia but he missed his last appointment with his psychiatrist. Patient reports he takes Risperdal because "it got tooken from me". Previous psychiatric hospitalizations: [facility] in October 2021 Psychiatric outpatient follow-up: [facility] Psychiatry Patient denies any history of suicide attempts in the past. PMH: Left hand pain and swelling Chronic fracture of the third metacarpal ALLERGIES: as per EMR CHEMICAL DEPENDENCY HISTORY: Smokes tobacco - about 2.5 ppd Smokes marijuana whenever he can get it. He drinks about 2 beers in one day currently, but has a history of heavy alcohol use. His last drink of alcohol was Sunday morning. FAMILY PSYCHIATRIC/SUBSTANCE USE HISTORY: Unable to assess due to the severity of symptoms. SOCIAL HISTORY: Patient is homeless. He reports that he was never . He states that he has an 11th grade education. He previously worked for a [employer]. He is currently unemployed. MENTAL STATUS EXAM: General Appearance: Patient appears to be older than stated age is alert, directable, and attempts to cooperate. Patient appears to have poor hygiene and grooming. Behavior: Patient is seated but displays elevated psychomotor activity. Speech: Patient's speech is hyperverbal, nonlinear, tangential. Interruptible. Mood/Affect: Patient reports their mood is "I'm okay," affect is bizarre and slightly expansive. Suicidality/Homicidality: Patient denies any overt suicidal or homicidal ideations. Perceptions: Patient denies any visual hallucinations and denies any auditory hallucinations Though content/process: Patient appears to be disorganized and at times responding to internal stimuli. Memory and concentration: He is alert and oriented in all spheres. Concentration appears to be poor. Judgment and insight: Fair STRENGTHS/WEAKNESSES: Strength is that the patient appears to be in relatively good health. Weaknesses the patient has severe mental illness and history of nonadherence to treatment along with alcohol use disorder INTELLECT: average IMPRESSIONS: Schizophrenia Alcohol use disorder Cannabis use disorder Tobacco use disorder PLAN: -Patient is admitted under involuntary status to [facility] for stabilization of psychiatric symptoms and safety. A second certification was completed and along with petition will be filed for court. -Medications: Will restart patient on Risperdal and increase dose to 2 mg BID for psychosis and mood. -Patient was counselled on substance abuse and desired to cut back on use -Patient was informed of the risks, benefits and side effects of the medication and patient verbally consented to taking the medications. Patient signed med consent form and was placed in chart. -Internal Medicine consult to perform medical evaluation and physical. -NRT - nicotine patch - on board for discharge planning. Encourage patient to participate in groups to work on coping skills. Allergies Allergy/AdvReac Type Severity Reaction Status Date / Time No Known Allergies Allergy Verified 11/26/21 03:00 Vital Signs Temp 97.5 F L 11/26/21 03:06 Pulse 79 11/26/21 03:06 Resp 16 11/26/21 03:06 BP 112/59 11/26/21 03:06 Pulse Ox 98 11/26/21 03:06 FiO2 Intake & Output 11/26/21 11/26/21 11/27/21 06:59 18:59 06:59 Weight 63.6 kg Laboratory Last Values Estimated Ave Glu mg/dL 112 11/26/21 10:08 Hemoglobin A1c 5.5 % (0.0-6.0) 11/26/21 10:08 TSH 1.650 mIU/L (0.465-4.680) 11/26/21 10:08 11/26/21 19:55
[2021-11-26] MEDS: risperiDONE 2 MG TAB PO SCH (21:06)
[2021-11-26] MEDS: ACETAMINOPHEN TAB 325 MG TAB PO PRN (21:07)
[2021-11-27] MEDS: ACETAMINOPHEN TAB 325 MG TAB PO PRN ×2 (04:58→20:08)
[2021-11-27] MEDS: CLINDAMYCIN 150 MG CAP PO SCH ×3 (08:56→20:08)
[2021-11-27] MEDS: NICOTINE 14MG/24HR PATCH TRANSDERM SCH (08:56)
[2021-11-27] MEDS: risperiDONE 2 MG TAB PO SCH (08:56)
[2021-11-27 09:28] LABS: LDL Cholesterol,Calculated 52.8 mg/dL (0.0-131.0)
--- NOTE | 2021-11-27 20:04 | P.PN ---
Progress Note - Text Progress Note Date: 11/27/21 Interval History: Patient was seen wandering the hallways and was directable and agreeable to speak with race and sports book writer in the office. His thought process is improving mildly; he initially presents with linear and cohorent thoughts, but then quickly derails into tangents and begins to ramble about his hand pain and appear to respond to internal stimuli. He reports the pain in his hand improved after Tylenol this morning, but reports he is in pain again now. He was instructed to go to the nurse's station to get a dose of Tylenol for pain; he did not appear to be able to make this decision on his own and needed to be directed to the nurse's station. At this time patient denies any suicidal or homical ideations, intent or plan. Patient denies any auditory, visual hallucinations and denies any paranoia or delusions, but appears to be responding to internal stimuli. Patient denies any side effects from the medications and has been compliant with meds. Mental Status Exam: General Appearance: Patient appears to be stated age, with fair hygiene and grooming. Behavior: Patient is seated but displays elevated psychomotor activity. Speech: Patient's speech is hyperverbal, tangential. Mood/Affect: Patient reports their mood is "I'm okay," affect is odd. Suicidality/Homicidality: Patient denies any overt suicidal or homicidal ideations. Perceptions: Patient denies any visual hallucinations and denies any auditory hallucinations Though content/process: Patient appears to be disorganized and at times responding to internal stimuli. Memory and concentration: He is alert and oriented in all spheres. Concentration appears to be poor. Judgment and insight: Fair Assessment Schizophrenia Alcohol use disorder Cannabis use disorder Tobacco use disorder Plan: -Patient is admitted under involuntary status to [facility] for stabilization of psychiatric symptoms and safety. A second certification was completed and along with petition will be filed for court. -Medications: Increase Risperdal to 3 mg BID for psychosis and mood. -When necessary Ativan and Haldol for agitation/aggression. -NRT - nicotine patch -SW on board for discharge planning. Encouraged the patient to participate in milieu.
[2021-11-27] MEDS: risperiDONE 1 MG TAB PO SCH (20:07)
[2021-11-28] MEDS: ACETAMINOPHEN TAB 325 MG TAB PO PRN ×2 (05:26→16:58)
[2021-11-28] MEDS: NICOTINE 14MG/24HR PATCH TRANSDERM SCH (09:28)
[2021-11-28] MEDS: CLINDAMYCIN 150 MG CAP PO SCH ×3 (09:28→21:00)
[2021-11-28] MEDS: risperiDONE 1 MG TAB PO SCH ×2 (09:28→21:00)
--- NOTE | 2021-11-28 12:11 | P.PN ---
Progress Note - Text Progress Note Date: 11/28/21 Interval History: Patient was seen wandering the hallways and was directable and agreeable to david lopez with field underwriter in the office. Patient claims that he has been going to groups. Patient was bizarre at times, poor eye contact. He was illogical and had loose associations. He spoke about it being noncompliant with his medications when he was discharged previously. He was bizarre and difficult to redirect during conversation. He was exhibiting disorganized speech. Not responding to internal stimuli today. Poor judgment and understanding of his illness. He claims that he is taking the Risperdal at this time. He claims that he does not want to take the long-acting injection. He states that he is sleeping fairly at nighttime. fair Appetite. At this time patient denies any suicidal or homical ideations, intent or plan. Patient denies any auditory, visual hallucinations and denies any paranoia or delusions, but appears to be responding to internal stimuli. Patient denies any side effects from the medications and has been compliant with meds. Mental Status Exam: General Appearance: Patient appears to be stated age, with poor hygiene and grooming. Behavior: Patient is seated but displays elevated psychomotor activity Speech: Patient's speech is hyperverbal, tangential. Mood/Affect: Patient reports their mood is "ok" affect is odd. Suicidality/Homicidality: Patient denies any overt suicidal or homicidal ideations Perceptions: Patient denies any visual hallucinations and denies any auditory hallucinations Though content/process: Patient appears to be disorganized, rambling, illogical. Memory and concentration: He is alert and oriented in all spheres. Concentration appears to be poor Judgment and insight: poor Assessment: Schizophrenia Alcohol use disorder Cannabis use disorder Tobacco use disorder Plan: -Patient is admitted under involuntary status to [facility] for stabilization of psychiatric symptoms and safety. A second certification was completed and along with petition will be filed for court today. -Medications: Risperdal 3 mg BID for psychosis and mood. Will need to transition patient onto GUTIERREZ due to non compliance with meds. -When necessary Ativan and Haldol for agitation/aggression. -NRT - nicotine patch -SW on board for discharge planning. Encouraged the patient to participate in milieu. Will file second cert today and await deferral and court hearing date.
[2021-11-29] MEDS: ACETAMINOPHEN TAB 325 MG TAB PO PRN ×2 (05:45→16:06)
[2021-11-29] MEDS: CLINDAMYCIN 150 MG CAP PO SCH ×2 (09:16→16:07)
[2021-11-29] MEDS: risperiDONE 1 MG TAB PO SCH ×2 (09:16→21:12)
[2021-11-29] MEDS: NICOTINE 14MG/24HR PATCH TRANSDERM SCH (09:17)
--- NOTE | 2021-11-29 09:50 | P.PN ---
Progress Note - Text Progress Note Date: 11/29/21 Interval History: Patient was seen wandering the hallways coming out of the group this morning and was directable and agreeable to speak with screenplay writer in the office. He spoke about missing some groups earlier but has been trying to attent. He spoke vaguely about what he is learning. He states that he feels a bit better compared to yeterday with regards to his mood. He is denying any anxiety today. He claims that his appetite is good and claims that he got 6 hrs of sleep last night. speech is more ogranized today. Continues to have poor judgment and understanding of his illness. At this time patient denies any suicidal or homical ideations, intent or plan. Patient denies any auditory, visual hallucinations and denies any paranoia or delusions. Patient denies any side effects from the medications and has been compliant with meds. Mental Status Exam: General Appearance: Patient appears to be stated age, with poor hygiene and grooming. poor eye contact. Behavior: Patient is seated but displays elevated psychomotor activity Speech: Patient's speech is hyperverbal, tangential, improving. Mood/Affect: Patient reports their mood is "alright" affect is congruent. Suicidality/Homicidality: Patient denies any overt suicidal or homicidal ideations Perceptions: Patient denies any visual hallucinations and denies any auditory hallucinations Though content/process: Patient appears to be rambling, illogical, more goal oriented today. Memory and concentration: He is alert and oriented in all spheres. Concentration is improving mildly Judgment and insight: poor, improving mildly Assessment: Schizophrenia Alcohol use disorder Cannabis use disorder Tobacco use disorder Plan: -Patient is admitted under involuntary status to MHU for stabilization of psychiatric symptoms and safety. -Medications: Risperdal 3 mg BID for psychosis and mood. Will need to transition patient onto GUTIERREZ due to non compliance with meds however at this time patient is refusing. -When necessary Ativan and Haldol for agitation/aggression. -NRT - nicotine patch -SW on board for discharge planning. Encouraged the patient to participate in milieu. waiting on deferral and court date.
[2021-11-29] MEDS: IBUPROFEN 600 MG TAB PO PRN (22:30)
[2021-11-30] MEDS: NICOTINE 14MG/24HR PATCH TRANSDERM SCH (08:37)
[2021-11-30] MEDS: risperiDONE 1 MG TAB PO SCH ×2 (08:37→21:37)
[2021-11-30] MEDS: IBUPROFEN 600 MG TAB PO PRN ×2 (08:40→21:41)
--- NOTE | 2021-11-30 11:34 | P.PN ---
Progress Note - Text Progress Note Date: 11/30/21 Interval History: Patient was seen wandering the hallways this morning and was directable and ag reeable to speak with typewriter ribbon winder in the office. He appears to be more directable today and more appropriately during conversation. He has several questions about his medications. He claims that he will be meeting his subassembly supervisor later on today and plans on doing the deferral. He states that his mood and anxiety began gradually improving. He claims that he does need the medications and we spoke about the long-acting injection today the positives and the drawbacks and patient was agreeable to it today. We spoke also about discharge planning. He states that he is trying to go to most of the groups and participate as best as he can. He was not responding to internal stimuli. He states that he slept fairly last night about 5 or 6 hours. Speech is more ogranized today. At this time patient denies any suicidal or homical ideations, intent or plan. Patient denies any auditory, visual hallucinations and denies any paranoia or delusions. Patient denies any side effects from the medications and has been compliant with meds. Mental Status Exam: General Appearance: Patient appears to be stated age, with improving hygiene and grooming. poor eye contact. Behavior: Patient is seated but displays elevated psychomotor activity Speech: Patient's speech is hyperverbal, tangential, improving. Mood/Affect: Patient reports their mood is "ok" affect is congruent. Suicidality/Homicidality: Patient denies any overt suicidal or homicidal ideations Perceptions: Patient denies any visual hallucinations and denies any auditory hallucinations Though content/process: Patient appears to be more goal oriented today. Memory and concentration: He is alert and oriented in all spheres. Concentration is improving mildly Judgment and insight: poor, improving mildly Assessment: Schizophrenia Alcohol use disorder Cannabis use disorder Tobacco use disorder Plan: -Patient is admitted under involuntary status to MHU for stabilization of psychiatric symptoms and safety. -Medications: Risperdal 3 mg BID for psychosis and mood. Spoke with patient today about transitioning onto Invega Sustenna, patient is agreeable to receive this today. Will order Invega Sustenna loading dose 234 mg IM today. Next dose of 156 mg IM will be due on 12/07 and then monthly maintenance dose will be due on 12/28. -When necessary Ativan and Haldol for agitation/aggression. -NRT - nicotine patch -SW on board for discharge planning. Encouraged the patient to participate in milieu. waiting on deferral and court date.
[2021-11-30] MEDS: ACETAMINOPHEN TAB 325 MG TAB PO PRN (15:50)
[2021-11-30] MEDS ORDERED: PALIPERIDONE IM 234 MG/1.5 ML SYG IM ONE (16:00)
[2021-12-01] MEDS: ACETAMINOPHEN TAB 325 MG TAB PO PRN (05:01)
[2021-12-01] MEDS: risperiDONE 1 MG TAB PO SCH (08:52)
[2021-12-01] MEDS: NICOTINE 14MG/24HR PATCH TRANSDERM SCH (08:53)
--- NOTE | 2021-12-01 10:05 | P.PN ---
Progress Note - Text Progress Note Date: 12/01/21 Interval History: Patient was seen this morning attending groups and was directable and agreeable to speak with radio news writer in the office. He appears to be more directable today and more appropriately during conversation however continues to ramble at time. He is focused on medications and also on discharge. He states that he has to go to the [facility] station to collect his belongings. He has several questions about his medications. He states that he is going to groups. He states that his mood and anxiety began gradually improving. He states that he slept well last night. He received the long acting injection yesterday and toelrated it well. At this time patient denies any suicidal or homical ideations, intent or plan. Patient denies any auditory, visual hallucinations. Patient denies any side effects from the medications and has been compliant with meds. Mental Status Exam: General Appearance: Patient appears to be stated age, with improving hygiene and grooming. improving eye contact. Behavior: Patient is seated but displays elevated psychomotor activity Speech: Patient's speech is tangential, improving. Mood/Affect: Patient reports their mood is "fine" affect is congruent. Suicidality/Homicidality: Patient denies any overt suicidal or homicidal ideations Perceptions: Patient denies any visual hallucinations and denies any auditory hallucinations Though content/process: Patient appears to be more goal oriented today. rambles at times Memory and concentration: He is alert and oriented in all spheres. Concentration is improving mildly Judgment and insight: chronically poor, improving mildly Assessment: Schizophrenia Alcohol use disorder Cannabis use disorder Tobacco use disorder Plan: -Patient is admitted under involuntary status to MHU for stabilization of psychiatric symptoms and safety. -Medications: decrease Risperdal 2 mg BID for psychosis and mood. received Invega Sustenna loading dose 234 mg IM on 11/30. Next dose of 156 mg IM will be due on 12/07 and then monthly maintenance dose will be due on 12/28. -When necessary Ativan and Haldol for agitation/aggression. -NRT - nicotine patch -SW on board for discharge planning. Encouraged the patient to participate in milieu. deferred with senior attorney. Likly discharge back home tomorrow.
[2021-12-01] MEDS: IBUPROFEN 600 MG TAB PO PRN (14:26)
[2021-12-01] MEDS: risperiDONE 2 MG TAB PO SCH (21:09)
[2021-12-02 05:14] VITALS: BP 125/85; PULSE 71; RESP 18; TEMP 98
[2021-12-02] MEDS: risperiDONE 2 MG TAB PO SCH (08:04)
[2021-12-02] MEDS: ACETAMINOPHEN TAB 325 MG TAB PO PRN (08:05)
--- NOTE | 2021-12-02 09:37 | P.DS ---
Providers Date of admission: 11/26/21 00:34 Expected date of discharge: 12/02/21 Attending physician: Derick Syed MD Consults: 11/25/21 18:29 Consult Physician Routine Consulting Provider: Arnold Physician Consult Reason/Comments: medical management Do you want consulting provider notified?: Yes, Notify in am Primary care physician: Stated None - Discharge Diagnosis(es) (1) Schizophrenia Current Visit: Yes Status: Acute Priority: High (2) Alcohol use disorder Current Visit: Yes Status: Acute Priority: Medium (3) Cannabis use disorder Current Visit: Yes Status: Acute Priority: Medium (4) Nicotine dependence Current Visit: Yes Status: Acute Priority: Low Hospital Course: Admission HPI: Admission note was completed by Dr Sosa "Patient is a 36 year old [facility] male with schizophrenia who presents with auditory hallucinations. Patient presented to the hospital as a transfer from [facility] due to psychosis. This is patient's second psychiatric hospitalization to [facility] in the past 1-2 months; last hospitalization for psychosis was from 10/23/21 to 10/25/21. Per mental health petition and cert, he was having "auditory hallucinations, commanding him to do things. Pt has poor insight and judgment." On assessment, patient is alert and oriented to person, place, time and situation. His thought process is disorganized with loose associations. He appears to be attending to internal stimuli. He endorses auditory hallucinations of voices that he sometimes can't make out what they're saying. Patient denies any suicidal or homicidal ideations, intent or plan. At this time, he denies visual hallucinations. Patient denies any flight of ideas, racing thoughts, and increased in goal directed behavior. He is paranoid and believes the police are out to get him. Patient admits to using marijuana whenever he can get it. Smokes tobacco - about 2.5 ppd. He drinks about 2 beers in one day currently, but has a history of heavy alcohol use. His last drink of alcohol was Sunday morning." Hospital course: Upon admission to the unit patient was admitted involuntarily on a petition and certificate and a second certificate was completed and faxed with the courts. Patient ended up signing a deferral with the wire coiler machine operator and agreeing to treatment. Patient got along well with other patients on the unit and followed unit protocol. Patient was compliant with the medications and denied any side effects throughout hospital course. Patient was started on Risperdal by mouth and transitioned onto Invega Sustenna, given 234 mg IM on 11/30 and will be due for his next dose of 156 mg IM on 12/06, with the monthly maintenance dose of 234 mg IM next due on 12/28. Patient spoke of his stressors and engaged in therapy both group and individual. Patient was also seen by medical team for history and physical exam. Throughout the course of the hospitalization patient gradually improved with regards to psychosis, mood, sleep and returned back to their baseline level of functioning. On the day of discharge patient denied any suicidal or homicidal ideations intent or plan denied any auditory or visual hallucinations. Patient endorsed wanting to live for his health and family. The patient denied any access to guns or weapons. Patient denied any paranoia and did not endorse any delusions. Patient does have a significant history of substance abuse and was counseled on abstaining from all substances including alcohol and marijuana. Patient elected to do outpatient substance use treatment program through his outpatient provider. Patient was also counseled on the medications and need for regular compliance and was encouraged to follow-up with their outpatient appointment for mental health and also for primary care. Social work to help arrange patient's discharge today back to [facility]. Mental status exam: General Appearance: Patient appears to be thin, stated age is alert, pleasant, and cooperative. Patient is in no acute distress and has improved hygiene and grooming Behavior: Patient is calmly seated without any agitated behavior. Her cooperative today. Speech: Patient's speech is fluent and nonpressured. Rambles at times. Mood/Affect: Patient reports their mood is "better", affect is congruent and euthymic. Suicidality/Homicidality: Patient denies having any suicidal or homicidal ideation intent or plan. Perceptions: Patient denies any auditory or visual hallucinations. Though content/process: There is no evidence of any delusional thought content and thought process is linear and goal-directed. Rambles. Memory and concentration: AOX3, grossly intact for the purposes of this session. Can spell "WORLD" backwards correctly. Judgment and insight: chronically poor, however has improved with guarded prognosis Impression: Schizophrenia Alcohol use disorder Cannabis use disorder Nicotine dependence Plan: -Continue with discharge today as patient has improved and stabilized psychiatrically and is not currently an imminent threat to himself and/or others. Patient will remain at chronically elevated risk for harm to self and/or others due to his chronically poor insight and judgment. -Continue medications: Continue with the Risperdal by mouth, 2 mg daily at bedtime for 3 more days then discontinue. Patient was given Invega Sustenna 234 mg IM loading dose on 11/30, next dose due on 12/06 through his outpatient provider of 156 mg IM. Monthly maintenance dose next due on 12/28 of 234 mg IM. -Patient was counseled on the need for medication compliance and appropriate follow-up at mental health and also primary care for medical issues. Patient verbalized understanding and agreed. -Social work to arrange for and conduct family meeting to ensure safety upon discharge and answer any questions/concerns. Social work also to arrange for patients follow up appointments for psychiatric care along with follow up with primary care provider. -Patient counseled on abstaining from recreational drugs and marijuana and alcohol. Was informed/educated on the adverse effects on their physical and mental health. Patient verbally agreed and understood. -Patient was instructed to return to the hospital or seek immediate medical care if their psychiatric or medical symptoms do worsen or reoccur. Allergies Allergy/AdvReac Type Severity Reaction Status Date / Time No Known Allergies Allergy Verified 11/26/21 03:[address] Glu mg/dL 112 11/26/21 10:08 Hemoglobin A1c 5.5 % (0.0-6.0) 11/26/21 10:08 Triglycerides 56.50 mg/dL (0.00-149.00) 11/26/21 10:08 Cholesterol 128.00 mg/dL (0.00-200.00) 11/26/21 10:08 LDL Cholesterol, Calc 52.8 mg/dL (0.0-131.0) 11/26/21 10:08 VLDL Cholesterol, Calc 11.30 mg/dL (5.00-40.00) 11/26/21 10:08 HDL Cholesterol 63.90 mg/dL (40.00-60.00) H 11/26/21 10:08 Cholesterol/HDL Ratio 2.00 Ratio 11/26/21 10:08 TSH 1.650 mIU/L (0.465-4.680) 11/26/21 10:08 Vital Signs Temp 98.0 F 12/02/21 05:13 Pulse 71 12/02/21 05:13 Resp 18 12/02/21 05:13 BP 125/85 12/02/21 05:13 Pulse Ox 99 12/02/21 05:13 FiO2 Patient Condition at Discharge: Stable Plan - Discharge Summary Discharge Rx Participant: No New Discharge Prescriptions: New Paliperidone IM [Invega Sustenna] 156 mg IM ONCE #1 ml Ibuprofen [Motrin] 600 mg PO QID PRN tab PRN Reason: Pain Paliperidone IM [Invega Sustenna] 234 mg IM QMONTHLY #1 each risperiDONE [RisperDAL] 2 mg PO HS 3 Days tab Discontinued risperiDONE [RisperDAL] 2 mg PO BID 30 Days tab guaiFENesin [Mucinex] 1,200 mg PO BID #30 tab Benzonatate [Tessalon Perles] 200 mg PO TID PRN #30 capsule PRN Reason: Cough Discharge Medication List Ibuprofen [Motrin] 600 mg PO QID PRN tab 12/02/21 [Rx] Paliperidone IM [Invega Sustenna] 156 mg IM ONCE #1 ml 12/02/21 [Rx] Paliperidone IM [Invega Sustenna] 234 mg IM QMONTHLY #1 each 12/02/21 [Rx] risperiDONE [RisperDAL] 2 mg PO HS 3 Days tab 12/02/21 [Rx] Follow up Appointment(s)/Referral(s): Henry Fatima [Other] - 12/06/21 9:45 am (Jeff 12/06 @ 09:45 via Telehealth injection 12/08 @ noon in [facility] ) Activity/Diet/Wound Care/Special Instructions: Avoid the use of street drugs and alcohol. Take all prescriptions as prescribed. When you are in need of refills on your medications, please contact your medical provider and/or outpatient psychiatrist to have this done. Please go to scheduled outpatient appointment for aftercare treatment. If symptoms return or become worse, call the crisis line at and/or go to the nearest emergency room for evaluation. Discharge Disposition: HOME SELF-CARE
== END 2021-12-02 15:30 | disposition home or self-care (01) | DRG 885 ==
LOC: 3MHU 11-26 00:34
PROVIDERS: ADMIT Psychiatry & Neurology Psychiatry; ATTEND Psychiatry & Neurology Psychiatry
DX: F20.9 Schizophrenia, unspecified (principal); M84.442A Pathological fracture, left hand, initial encounter for fracture; F17.210 Nicotine dependence, cigarettes, uncomplicated; F41.9 Anxiety disorder, unspecified; M79.89 Other specified soft tissue disorders; Z91.14 Patient's other noncompliance with medication regimen; Z59.00 Homelessness unspecified; Z56.0 Unemployment, unspecified; Z72.89 Other problems related to lifestyle
CPT/HCPCS: 80061; 83036; 84443

== ENCOUNTER 2023-10-10 22:24 | Emergency (ER) | payer MEDICARE, MEDICAID ==
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
[2023-10-10] MEDS: ACETAMINOPHEN TAB 325 MG TAB PO STA (23:33)
[2023-10-11 00:07] VITALS: BP 116/76; PULSE 99; RESP 20; TEMP 98.1
== END 2023-10-10 23:47 | disposition home or self-care (01) ==
LOC: EC 22:24
DX: R51.9 Headache, unspecified (principal); F17.200 Nicotine dependence, unspecified, uncomplicated; F12.90 Cannabis use, unspecified, uncomplicated
CPT/HCPCS: 99283